=== PATIENT | male | born 1965 | race Caucasian/White ===

== ENCOUNTER 2020-10-01 05:04 | Emergency (ER) | payer MEDICAID, SELFPAY ==
--- NOTE | 2020-10-01 05:05 | ED.RN ---
CALLED FOR EKG PER RN REQUEST, NO OLD EKGS IN MUSE
[2020-10-01 05:07] VITALS: BP 161/92; PULSE 75; RESP 18; TEMP 35.9; O2SAT 98; BMI 29.7
--- NOTE | 2020-10-01 05:28 | RAD_ITS ---
STUDY: X-RAY CHEST REASON FOR EXAM: Male, 55 years old. C/O LT SIDED CP X 2 MONTHS TECHNIQUE: Single AP portable view of the chest. COMPARISON: None. FINDINGS: The lungs are clear and expanded. There is no demonstrated pleural abnormality. Normal size heart. Normal mediastinum and lia. Normal visualized pulmonary arteries. Normal visualized aortic arch and descending thoracic aorta. Normal visualized thoracic spine. Normal visualized ribs, clavicles, and shoulders. There is no demonstrated abnormality of the visualized soft tissue structures of the upper abdomen. RAD/Chest 1 View (Portable) IMPRESSION: Normal x-ray examination of the chest. Electronically Signed: Anoop Minor DO at 5:42 EST Tel , Service support ,
--- NOTE | 2020-10-01 05:28 | EKG12_ITS ---
Test Reason : CP Blood Pressure : / mmHG Vent. Rate : 076 BPM Atrial Rate : 076 BPM P-R Int : 178 ms QRS Dur : 096 ms QT Int : 380 ms P-R-T Axes : 031 -31 031 degrees QTc Int : 427 ms Normal sinus rhythm Left axis deviation Abnormal ECG Confirmed by NACHO MCGHEE, JENNIFER ([id number]), publications editor KEKE LOPEZ ([id number]) on 10/06/2020 10:34:53 AM Referred By: MANDA Confirmed By:JENNIFER GRIFFITH MD
[2020-10-01 05:34] LABS: Absolute Lymphocyte Count 3.12 X10^3/uL (0.83-4.51); Absolute Neutrophil Count 5.1 X10^3/uL (2.0-7.7); Basophil# 0.05 X10^3/uL; Basophil% 0.5 % (0-1); Eosinophil# 0.45 X10^3/uL; Eosinophils% 4.7 % (0-5); Hematocrit 44.2 % (40-54); Hemoglobin 14.6 g/dL (13.0-16.5); Lymphocyte # 3.12 X10^3/ul (4.0); Lymphocyte % 32.4 % (19-41); Mean Corpuscular Hgb 30.1 pg (27.0-32.0); Mean Corpuscular Volume 91.1 fL (80-94); Mean Platelet Vol. 9.5 fl (6.2-12.0); Monocyte# 0.88 X10^3/uL; Monocyte% 9.1 % (0-10); NRBC Flagged by Analyzer 0 % (0-5); Neutrophil # 5.12 X10^3/uL (2.7-7.7); Neutrophil % 53.1 % (47-70); Platelet Count 271 K/mm3 (150-450); RBC Distribution Width CV 13.2 % (11.6-14.6); RBC Distribution Width SD 44.5 fl (35.1-43.9); Red Blood Count 4.85 M/mm3 (4.6-6.2); White Blood Count 9.6 K/mm3 (4.4-11.0)
--- NOTE | 2020-10-01 05:38 | ED.DCSUM_ITS ---
History of Present Illness Chief Complaint: Upper Extremity Injury Informant: Patient Onset: Days Narrative: Patient is a 55-year-old male with history of diabetes mellitus, hypertension hyperlipidemia presenting with worsening pain in his left shoulder. Patient states he started to have pain in his shoulder blade couple days ago and is now moved into his shoulder. Patient is about the night his pain was more severe and had a hard time sleeping. He notes is worse with movement. At 1 point he had an episode of tingling in his left pinky finger. He did take Advil this morning, approximately 2 hours prior to arrival. He also notes over the past month has had intermittent episodes of chest discomfort. He states it starts over his xiphoid process and radiates to the left ribs. The pain episodes last for about 5 to 10 minutes. He states it almost feels like a cramp and he just does some deep breathing until it passes. They are now occurring 2-3 times a day. They do not seem to be associated with eating or exertion. Patient has appointment with his primary care doctor next week. He states he has not she seen his primary care doctor for the past 2 years. He is currently only on lisinopril which he had leftover. Patient denies any difficulty breathing or shortness of breath. He has a chronic smoker's cough productive of phlegm which is unchanged from his baseline. He denies any swelling of his extremities. No history of DVT or PE. Patient also notes that he was at [facility] a week ago for hematuria. He was placed on antibiotics for this and his hematuria has resolved. Encounter is reviewed which shows patient did have a urinalysis consistent with hematuria. Urine culture was negative. Past Medical History - Allergies and Home Meds Allergies/Adverse Reactions: Allergies No Known Allergies Allergy (Verified 10/01/20 05:05) Primary Care Physician: Kristi Doctor,Out of [NON-STAFF] - Past Medical History: - - Hypertension, hyperlipidemia, diabetes mellitus type 2 Surgical History: - - Cardiac catheterization?no stenting performed Smoking Status: Current every day smoker Review of Systems General: Denies: Chills, Fever, Sweats Eyes: Denies: Visual changes - bilaterally, Diplopia ENT: Denies: Rhinorrhea, Sore throat Cardiovascular: Reports: Chest pain. Denies: Palpitations, Heart racing Respiratory: Reports: Cough - Chronic?unchanged. Denies: Dyspnea, Dyspnea on exertion Gastrointestinal: Reports: Nausea - Secondary to pain. Denies: Abdominal pain, Vomiting, Diarrhea, Melena, Hematochezia Genitourinary: Denies: Dysuria, Hematuria, Frequency Musculoskeletal: Reports: Extremity Pain - Left shoulder/shoulder blade. D enies: Back pain Skin: Denies: Rash, Wounds Neurological: Reports: Parasthesia - Left pinky finger?currently resolved. Denies: Headache, Weakness, Numbness Physical Exam Vital Signs/Narrative: Vital Signs Temp Pulse Resp BP Pulse Ox 10/01/20 05:07 96.6 F L 75 18 161/92 H 98 Inital Vital Signs reviewed: Yes General: Well nourished, Well developed, No Acute Distress Head: Normocephalic, Atraumatic Eyes: Perrl, EOMI ENT: Moist mucous membranes, No rhinorrhea Neck: Supple, Nontender, No JVD Cardiovascular: Regular rate, Regular rhythm, No murmurs Respiratory: No distress, CTA bilaterally, Chest nontender Abdomen: Soft, Nontender, Nondistended, Normal bowel sounds Back: Nontender, Normal Inspection Extremities: No edema, Tenderness - Left shoulder and shoulder blade area. Most pronounced over the bicipital groove and AC joint, - - Normal range of motion. Increased pain with active range of motion of the shoulder. Normal strength and sensation in all dermatomes. Pain is worse with internal rotation and flexion of the shoulder. Negative for: Edema Skin: Normal color, No rash Neurological: Alert, Oriented x3, Cranial nerves II-XII grossly intact, Normal Strength, Normal Sensation Psychological: Normal affect, Normal Mood Diagnostic/Tx/Re-eval Chest X-Ray - ED: 1 View, Read by ED Physician, Read by Radiologist, No Acute Disease - Rhythm Strip Rhythm Strip: Sinus Rhythm Rate: 76 Ectopy: None - EKG Initial EKG Interpretation: Sinus Rhythm, - - Normal sinus rhythm at a rate of 76 Left axis deviation Normal intervals Normal ST segments Interpreted by emergency medicine physician Prior: Unchanged - From 12/10/2016?reviewed in [facility] - Medical Decision Making Patient is evaluated for left shoulder pain. On exam patient's pain appears to be muscle skeletal. Is reproducible with direct palpation and range of motion. Patient does admit that over the past month he has had intermittent episodes of this of vague chest pain. While I suspect is more muscle skeletal as well patient does have cardiac risk factors including tobacco use, hypertension hyperlipidemia as well as diabetes mellitus. Troponin is negative. Patient does not have any ischemic changes on his chest x-ray. His heart score is 3. Patient's only PE risk factor is age. His D-dimer is negative. No acute process is found on chest x-ray. Patient does not have any acute laboratory abnormalities. Patient be discharged home to follow-up with his primary care doctor. He has an appointment next week. He is given referral for urologist as he has an episode of hematuria last week and has not been able to get a hold of the urologist he was referred to from [facility]. Patient is counseled on signs and symptoms requiring return to the emergency room. Patient verbalizes agreement and understand this plan. Patient discharged home in stable and improved condition. ED Disposition - Plan for ED Patient: Disposition: Home or Assisted Living Diagnosis: Atypical chest pain, Left shoulder pain Instructions: ED Shoulder Pain, Uncertain Cause Referrals: Lexa Garsia MD [STAFF PHYSICIAN] - Regis Bond MD [Primary Care Provider] - Additional Instructions: Your heart looks normal today as well as your lungs. I suspect your pain is muscle skeletal. Take [id number] anti-inflammatory such as ibuprofen or naproxen for pain. Rest your shoulder. You may also take Tylenol. Please follow-up with your primary care doctor as scheduled. You have been given information for her urologist to follow-up with for your hematuria.
[2020-10-01 05:41] LABS: D-Dimer Quantitative (DVT/PE) <= 0.27 FEU/ug/m (0.27-0.49)
[2020-10-01 06:01] VITALS: BP 132/76; PULSE 71; RESP 17; O2SAT 93
[2020-10-01 06:15] LABS: Anion Gap 6 (5-15); BUN 13 mg/dL (7-18); BUN/Creat Ratio 20.3 RATIO (10-20); Calcium,Total 9.2 mg/dL (8.5-10.1); Chloride 109 mmol/L (98-107); Creatinine, Serum 0.64 mg/dL (0.70-1.30); EST Glomerular Filtration Rate 138 mL/min (>60); Est Glom Filt Rate - Afr Amer 167 mL/min (>60); Estimated Creatinine Clearance 126.17 ml/min; Glucose 138 mg/dL (74-106); Sodium Level 140 mmol/L (136-145)
[2020-10-01 06:32] VITALS: BP 128/73; PULSE 73; RESP 16; O2SAT 95
== END 2020-10-01 06:38 | disposition home or self-care (01) ==
PROVIDERS: Emergency Provider Emergency Medicine
DX: R07.89 Other chest pain (principal); M25.512 Pain in left shoulder; F17.200 Nicotine dependence, unspecified, uncomplicated; E78.5 Hyperlipidemia, unspecified; I10 Essential (primary) hypertension
CPT/HCPCS: 71045; 80048; 84484; 85025; 85379; 93005; 99285; A4216